=== PATIENT | male | born 1965 | race Caucasian/White ===

== ENCOUNTER → 2016-12-11 | Outpatient (CLI) | payer MEDICARE ==
--- NOTE | 2016-12-11 12:04 | XR ---
EXAMINATION TYPE: XR chest 2V DATE OF EXAM: 12/11/2016 11:54 AM COMPARISON: 08/23/2016 HISTORY: Shortness of breath TECHNIQUE: Frontal and lateral views of the chest are obtained. FINDINGS: Scattered senescent parenchymal changes noted. Hyperinflation compatible with COPD. Prominence of the pulmonary interstitium without focal consolidation. Heart size is stable. Mediastinal structures are stable and grossly unremarkable. No evidence for hilar prominence. Degenerative changes dorsal spine. IMPRESSION: 1. No evidence for acute pulmonary disease.
== END | disposition home or self-care (01) ==
LOC: RADXRMAIN 11:43
PROVIDERS: ATTEND Family Medicine
DX: J44.9 Chronic obstructive pulmonary disease, unspecified (principal)
CPT/HCPCS: 71020

== ENCOUNTER → 2017-01-03 | Outpatient (CLI) | payer MEDICARE ==
--- NOTE | 2017-01-03 15:36 | XR ---
EXAMINATION TYPE: XR chest 2V DATE OF EXAM: 01/03/2017 3:23 PM COMPARISON: 12/11/2016 HISTORY: 51-year-old male follow-up after pneumonia, shortness of breath TECHNIQUE: Frontal and lateral views FINDINGS: Heart remains borderline enlarged. Diffuse interstitial with perihilar and reticular opacities persis t throughout the lungs. No pleural effusion. IMPRESSION: Persistent interstitial infiltrates. Correlate for possible etiologies including bronchitis, chronic uncontrolled asthma, atypical pneumonias and interstitial pneumonitis.
== END | disposition home or self-care (01) ==
LOC: RADXRMAIN 14:23
PROVIDERS: ATTEND Family Medicine
DX: R91.8 Other nonspecific abnormal finding of lung field (principal); J18.9 Pneumonia, unspecified organism
CPT/HCPCS: 71020

== ENCOUNTER 2017-01-05 07:42 | Emergency (ER) | payer MEDICARE ==
--- NOTE | 2017-01-05 09:10 | ED ---
CPR HPI - General Stated Complaint: Cardiac Arrest Time Seen by Provider: 01/05/17 07:42 Source: family, EMS, RN notes reviewed, old records reviewed Mode of arrival: EMS - History of Present Illness Initial Comments: This is a 51-year-old male with a benign history other than recent history of being diagnosed with pneumonia with inpatient treatment as well as left knee surgery recently who was a local [employer] apparently shopping when he collapsed. Bystanders started CPR right away. An AED was present and it was applied showing no shock indicated. CPR was continued. EMS was called and dispatched to the scene. The dispatched at approximately 7:09 AM EMS states they arrived around [id number]. They found that at the time of arrival he was in PEA. ACLS protocol was initiated. Intubation was attempted. Patient was transported to this emergency Department for further evaluation. MD Complaint: collapsed during activity - Related Data Allergies Allergy/AdvReac Type Severity Reaction Status Date / Time No Known Allergies Allergy Verified 01/05/17 09:00 Review of Systems ROS Statement: Those systems with pertinent positive or pertinent negative responses have been documented in the HPI. ROS Other: All systems not noted in ROS Statement are negative. Limitations: ROS unobtainable due to patients medical condition General Exam - General Exam Comments Initial Comments: This is a well-developed well-nourished unresponsive male CPR was in progress. He demonstrated cyanosis from the shoulders up to the head. Limitations: altered mental status, physical limitation General appearance: other (Unresponsive) Head exam: Present: atraumatic (Cyanotic), other Eye exam: Present: other (Pupils were fixed and dilated about 5 mm) ENT exam: Present: other (Some bloody residue apparently from the initial intubation attempt dentition intact) Neck exam: Present: normal inspection. Absent: tenderness, meningismus, lymphadenopathy Respiratory exam: Present: other (Spontaneous respirations or were bilateral air sounds with [id number].) Cardiovascular Exam: Present: other (No heart sounds) GI/Abdominal exam: Present: soft, other (No bowel sounds, 3 small areas of ecchymosis consistent with subcutaneous injection sites. The largest one was about 3 cm in diameter sec 12.5 cm diameter. A 1 approximately 1/2 cm in diameter.) Rectal exam: Present: deferred exam: Present: normal inspection Extremities exam: Present: other (Bilaterally present and symmetric, a healing surgical scar over the anterior left knee no evidence of any wound dehiscence or infection.). Absent: normal capillary refill Back exam: Present: normal inspection Neurological exam: Present: other (Unresponsive) Psychiatric exam: Present: other (Not applicable) Skin exam: Present: pallor, other (Cyanosis is noted above) Course - Reevaluation(s) Reevaluation #1: 01/05/17 09:15 ACLS protocol was continued including epinephrine and IV bicarbonate and CPR but to no avail the patient did not respond and efforts were stopped and the patient was pronounced at 7:52 AM Reevaluation #2: 01/05/17 09:15 I did discuss the initial findings and events that were noticed that time to the patient's . Reevaluation #3: 01/05/17 09:16 8:33 AM I did discuss the case with the medical educator's office. Reevaluation #4: 01/05/17 09:16 9:12 AM I did discuss case with Dr. Rodríguez who is agreed to sign a certificate. Reevaluation #5: 01/05/17 09:25 I did discuss the case again with the medical educator's office patient will be placed in the morgue pending further information from the family. At this time and does not appear the patient will be a medical educator case. Procedures - Intubation Time Out Performed: No (Continued presents with the patient) Laryngoscope: Benson Size: 3 ET Tube Size: 8 ET Tube Uncuffed: No Tube Secured Depth (cm): 23 Tube Secured Location: lips Tube Placement Confirmation: visualized tube passing through cords, equal breath sounds bilaterally Intubation Complications: none (Suction was used to is a small amount of residual blood in the posterior pharynx was cleared easily.) Medical Decision Making - Medical Decision Making I did discuss the case again with the family members and the patient's regarding the events. The patient will be placed in the morgue pending further evaluation by the medical educator's office. I did discuss case with Dr. Rodríguez who will sign the certificate. Critical Care Time Critical Care Time: Yes Critical Care Time: 33 minutes of critical care time which includes monitoring the EMS run and discussed with paramedics evaluation including the history and physical the patient. The entire code not including intubation. Discussion with Dr. Mullally discussion with the family and multiple occasions discussion with the medical educator's twice documentation above review of old charting that was available Disposition Clinical Impression: Sudden cardiac , Cardiac arrest Disposition: Preliminary Cause of : Cardiac arrest
[2017-01-06 07:34] LABS: Glucose,Whole Blood 153 mg/dL (75-99)
[2017-01-06] MEDS ORDERED: SODIUM BICARB 8.4% 50 ML SYR (1 MEQ/ML) ONE (08:07)
== END 2017-01-05 13:00 | disposition expired ==
LOC: EC 07:42
DX: I46.9 Cardiac arrest, cause unspecified (principal); R41.82 Altered mental status, unspecified
CPT/HCPCS: 31500; 36415; 92950; 99291